=== PATIENT | male | born 1960 | race Two or more races ===

== ENCOUNTER 2024-05-06 18:21 | Inpatient (IN) | payer MEDICAID, SELFPAY ==
[2024-05-06] VITALS (8 sets, daily range): BP systolic 117–161; BP diastolic 68–92; PULSE 70–92; RESP 13–18; TEMP 35.6–36.6; O2SAT 96–99; BMI 28.3
--- NOTE | 2024-05-06 18:26 | XR_ITS ---
Examination: CT brain head without contrast. 2-D sagittal coronal reconstructions Date and time of exam:May 06, 2024 2105 hrs. Indications: Onset headache dizziness today CTDI: vol (mGy):52.4 DLP: (mGycm):1 Technique: Multiple CT axial sections of the brain have been obtained, 5 mm slice thickness. Contrast has not been administered. 2-D sagittal, coronal reconstructions have been obtained Low dose protocols were performed. One or more of the following dose reduction techniques were used; automated exposure control, adjustment of the mA and/or KV according to patient size, use of iterative reconstruction technique. Findings: No significant ventricular enlargement. Subtle low densities in the right frontal parietal lobe, axial image 21 Intra-axial or extra-axial hemorrhage density is not seen. No mass effect or midline shift Basal cisterns are not remarkable. Fourth ventricle is midline. Cranial vault intact. Impression: Negative for acute hemorrhage, mass effect or midline shift Age indeterminate infarcts in the right frontal parietal lobe, clinical correlation advised, consider brain MRI follow-up, stroke protocol
--- NOTE | 2024-05-06 18:27 | EKG_ITS ---
[facility] Test Date: 2024-05-06 Pat Name: MISHA RODRIGUEZ Department: Room: - Gender: Male Employee Placement Specialist: : 1960 Requested By: Danny Sanabria Order Number: [id number] Reading MD: Danny Sanabria Measurements Intervals [place] Rate: 77 P: 39 MD: 152 QRS: 46 QRSD: 116 T: 46 QT: 403 QTc: 457 Interpretive Statements SINUS RHYTHM MODERATE INTRAVENTRICULAR CONDUCTION DELAY [110+ ms QRS DURATION] No previous ECG available for comparison /store/S0/[id number].pdf
--- NOTE | 2024-05-06 18:27 | EDNOTE_ITS ---
ED General RME/HPI General Chief complaint: Nausea/Vomiting/Diarrhea Stated complaint: N/V Time Seen by Provider: 05/06/24 18:26 Arrival date/time: 05/06/24 18:21 CC: Headache and dizziness with abrupt onset of nausea vomiting HPI onset this afternoon approximately 3 hours ago. The patient denies any light sensitive but is squinting his eyes. No active retching at this time. No prior history of similar events he is not a diabetic has no history of hypertension or hyperlipidemia. Also complaining of neck pain for the past hour. Related Data Previous Rx's ?Medication ?Instructions ?Recorded cetirizine 10 mg tablet 10 mg PO QDAY #14 tabs 10/18/22 Allergies Allergy/AdvReac Type Severity Reaction Status Date / Time No Known Allergies Allergy Verified 10/18/22 19:32 Review of Systems Review of Systems Narrative Review of Systems: GEN: No fever, no chills, no weight loss EYES: No discharge, no visual changes, no pain HEENT: No ear pain, no congestion, no sore throat PULM: No shortness of breath, no cough, no congestion CV: No chest pain, no dyspnea on exertion, no palpitations GI: + nausea, + vomiting, no diarrhea, no pain, no constipation : No frequency, no urgency, no dysuria MUSC/SKEL: No joint pain, no back pain SKIN: No rash PSYCH: No hallucinations, no depression HEME/LYMPH: No easy bleeding or bruising tendencies NEURO: No weakness, + headache Past Medical History Past Medical History CARDIAC: Negative Congestive Heart Failure RESPIRATORY: Negative Chronic Obstructive Pulmonary Disease (COPD) GENITOURINARY: Negative Renal Disease ENDOCRINE: Negative Diabetes Mellitus Type 1 or Diabetes Mellitus Type 2 Social History SMOKING STATUS: Current some day smoker ED Exam Narrative Physical exam: [General: In moderate discomfort, not in any acute distress Head normocephalic HEENT: Eyes pupils are PERRLA EOMs intact. Patient had to make an extra effort not to squint secondary to the light. Mouth pink dry membranes uvula is midline. Nose no rhinorrhea or otorrhea. All other subsystems of HEENT are within acceptable limits Neck is supple nontender no JVD no edema no tenderness with palpation to the cervical paraspinal region, no cervical spinal tenderness with palpation Chest equal chest rise nontender to palpation Respiratory: Clear to auscultation no wheezes crackles or rubs CV: Rate rhythm is regular no murmurs rubs or clicks Abdomen is soft nontender no masses positive bowel sounds all 4 quadrants Back: No CVA tenderness no spinous process tenderness from cervical spine thoracic and lumbar spine Skin: Intact no petechiae rash induration ulceration or crepitus Extremities: Moving all extremity against resistance cap refill less than 2 seconds neurosensory intact Neuro: Awake alert oriented x3 Glascow coma 15 no focal deficits] Course Quality Measures none Orders Category Date Time Status Bedside COVID-19 Antigen Test NOW Care 05/07/24 00:10 Active COVID-19 Screening Questionnaire NOW Care 05/06/24 23:57 Active COVID-19 Screening Questionnaire NOW Care 05/07/24 00:09 Active Decision to Admit X1 Care 05/06/24 23:57 Completed Decision to Admit X1 Care 05/07/24 00:09 Completed EKG (ED ONLY) *Do not use* NOW Care 05/06/24 18:27 Completed Saline [Insert IV] NOW Care 05/06/24 18:[address] angio stroke protocol Stat Exams 05/06/24 22:[address] head/brain wo con Stat Exams 05/06/24 18:26 Completed EKG (ED Only) Stat Exams 05/06/24 18:27 Draft B-Type Natriuretic Peptide Stat Lab 05/06/24 19:32 Completed CBC Stat Lab 05/06/24 19:32 Completed Comprehensive Metabolic Panel Stat Lab 05/06/24 19:32 Completed Drug Screen,Urine Stat Lab 05/06/24 20:59 Completed LDH (Lactate Dehydrogenase) Stat Lab 05/06/24 19:32 Completed Magnesium Stat Lab 05/06/24 19:32 Completed Partial Thromboplastin Time Stat Lab 05/06/24 19:32 Completed Prothrombin Time with INR Stat Lab 05/06/24 19:32 Completed Troponin I Stat Lab 05/06/24 19:32 Completed Urinalysis Stat Lab 05/06/24 20:59 Completed Aspirin Med 05/06/24 22:34 Discontinued 325 mg PO X1 ONE Metoclopramide Inj [Reglan Inj] Med 05/06/24 21:35 Discontinued 10 mg IVP X1 ONE Ondansetron Inj [Zofran Inj] Med 05/06/24 18:30 Discontinued 4 mg IV X1 ONE Sodium Chloride 0.9% 1000 ml [Ns] 1,000 ml Med 05/06/24 18:30 Discontinued IV 999 mls/hr Vital Signs Vital signs: Vital Signs Temperature 96.0 F L 05/06/24 18:59 Pulse Rate 78 05/06/24 18:59 Respiratory Rate 17 05/06/24 18:59 Blood Pressure 158/92 H 05/06/24 18:59 Pulse Oximetry (%) 99 05/06/24 18:59 Oxygen Delivery Method Room Air 05/06/24 18:59 [facility] Patient data External records reviewed:: [facility] previous records Clinical information provided by:: patient Social determinants that could affect healthcare access:: none Patient has the following chronic illnesses:: None How is presenting disease/condition affected by chronic disease/condition?: u neffected by Evaluation data The following diagnostics were reviewed and interpreted by me:: lab results, radiology exam(s) and EKG tracing(s) Lab and/or radiology exams considered but not ordered:: CBC shows a mild leukocytosis of 13 with a mild anemia no thrombocytopenia Coags within acceptable limits CMP shows no acute electrolyte imbalances other than mildly elevated glucose, renal impairment transaminitis no T. bili elevation Urine is negative UDS is negative Interpretation Summary: Patient's case referred to telemetry neurology because of the age-indeterminate infarct in the right parietal lobe. Patient is out of the window for tPA. CTA of head and neck advised followed by admission if there is no LVO for further stroke workup. Patient is in agreement with this plan Medications Medications considered but not ordered:: None Medication administrations:: Medication Administration History Acetaminophen (Acetaminophen 325 Mg Tablet) 650 mg PO Q6H PRN PRN Reason: Fever >101.5 or pain 1-3 Stop: 06/06/24 00:55 Last Admin: 05/08/24 00:20 Dose: 650 mg Documented By: Aspirin (Aspirin Ec 81 Mg Tabec) 81 mg PO QDAY MELODY Stop: 06/06/24 08:59 Last Admin: 05/08/24 08:03 Dose: 81 mg Documented By: Admin: 05/07/24 08:23 Dose: 81 mg Documented By: ED Atorvastatin Calcium (Atorvastatin Calcium 20 Mg Tablet) 40 mg PO HS MELODY Stop: 06/06/24 20:59 Last Admin: 05/07/24 20:04 Dose: 40 mg Documented By: Enoxaparin Sodium (Enoxaparin Sod Inj 40 Mg/0.4 Ml Syringe) 40 mg SC QDAY [facility] Stop: 05/21/24 08:59 Last Admin: 05/08/24 08:04 Dose: 40 mg Documented By: Admin: 05/07/24 08:23 Dose: 40 mg Documented By: ED Nicotine (Nicotine Patch 14 Mg/24 Hr Patch.Td24) 14 mg TOP QDAY MELODY Stop: 06/07/24 09:44 Last Admin: 05/08/24 09:49 Dose: 14 mg Documented By: ESTEVAN Ondansetron HCl (Ondansetron Inj 2 Mg/Ml Inj 2 Ml) 4 mg IV Q6H PRN; Protocol PRN Reason: NAUSEA OR VOMITING Stop: 06/06/24 00:55 Tramadol HCl (Tramadol Hcl 50 Mg Tablet) 50 mg PO Q6HR PRN PRN Reason: PAIN SCALE 4-6 (Moderate Stop: 05/12/24 00:55 Last Admin: 05/08/24 02:57 Dose: 50 mg Documented By: Admin: 05/07/24 20:03 Dose: 50 mg Documented By: Admin: 05/07/24 14:26 Dose: 50 mg Documented By: ED Discontinued Medications Alprazolam (Alprazolam 0.25 Mg Tablet) 0.5 mg PO X1 ONE Stop: 05/07/24 12:45 Last Admin: 05/07/24 12:52 Dose: 0.5 mg Documented By: ED Aspirin (Aspirin 325 Mg Tablet) 325 mg PO X1 ONE Stop: 05/06/24 22:35 Last Admin: 05/06/24 23:23 Dose: 325 mg Documented By: TC Clonazepam (Clonazepam 0.5 Mg Tablet) 0.25 mg PO X1 ONE Stop: 05/07/24 08:14 Last Admin: 05/07/24 08:22 Dose: 0.25 mg Documented By: ED Sodium Chloride (Ns) 1,000 mls @ 999 mls/hr IV .Q1H1M ONE Stop: 05/06/24 19:30 Last Infusion: 05/06/24 20:56 Dose: Infused Documented By: Admin: 05/06/24 19:36 Dose: 999 mls/hr Documented By: TC Sodium Chloride (Ns) 1,000 mls @ 100 mls/hr IV .Q10H MELODY Stop: 05/07/24 10:59 Last Infusion: 05/07/24 14:26 Dose: Infused Documented By: Admin: 05/07/24 03:17 Dose: 100 mls/hr Documented By: LISHA Melatonin (Melatonin 3 Mg Tablet) 3 mg PO X1 ONE Stop: 05/08/24 00:10 Last Admin: 05/08/24 00:20 Dose: 3 mg Documented By: Metoclopramide HCl (Metoclopramide Inj 5 Mg/Ml Vial 2 Ml) 10 mg IVP X1 ONE; Protocol Stop: 05/06/24 21:36 Last Admin: 05/06/24 21:46 Dose: 10 mg Documented By: TC Ondansetron HCl (Ondansetron Inj 2 Mg/Ml Inj 2 Ml) 4 mg IV X1 ONE; Protocol Stop: 05/06/24 18:31 Last Admin: 05/06/24 19:37 Dose: 4 mg Documented By: TC Potassium Chloride (Potassium Chloride 20 Meq Tabcr) 20 meq PO X1 ONE Stop: 05/08/24 07:34 Last Admin: 05/08/24 08:03 Dose: 20 meq Documented By: ESTEVAN Quetiapine Fumarate (Quetiapine Fumarate 25 Mg Tablet) 25 mg PO X1 ONE Stop: 05/08/24 07:52 Last Admin: 05/08/24 08:03 Dose: 25 mg Documented By: ESTEVAN None Consultations Consultation(s) initiated? (list below): Yes Consultation #1 (Physician, Specialty, Details): Teleneurologist Time: 22:33 Diagnosis Differential Diagnosis ED Complaint MDM: CVA TIA intercranial hemorrhage Most likely diagnosis given after review of the tests above:: CVA nausea vomiting Admission Indicated Admission indicated?: indicated Explain why admission is indicated or not indicated:: Requires further medical management Admission Request Was there a request for admission?: No Disposition Plan Disposition Plan: Admit Medical Decision Making Differential Diagnosis Differential Diagnosis: CVA TIA intercranial hemorrhage Lab Data 05/08/24 04:38 05/08/24 04:38 Labs: Lab Results 05/06/24 05/06/24 Range/Units 19:32 20:59 WBC 14.3 H (3.8-10.6) Thou/mm3 RBC 4.44 L (4.50-5.90) Miln/mm3 Hgb 13.1 L (13.5-16.0) g/dL Hct 38.0 L (41.0-53.0) % MCV 86 (80-100) fL MCH 29.5 (25.0-35.0) pg MCHC 34.5 (31.0-37.0) g/dl RDW Std Deviation 38.8 (35.1-43.9) fL Plt Count 192 (140-440) Thou/mm3 Neut % (Auto) 82 H (37-80) % Lymph % (Auto) 10 (10-50) % [place] % (Auto) 6 (0-12) % Eos % (Auto) 1 (0-10) % Baso % (Auto) 0 (0-2.5) % Neut # (Auto) 11.8 H (1.8-7.7) Thou/mm3 Lymph # (Auto) 1.4 (1.0-4.8) Thou/mm3 [place] # (Auto) 0.9 H (0.0-0.8) Thou/mm3 Eos # (Auto) 0.1 (0.0-0.5) Thou/mm3 Baso # (Auto) 0.1 (0.0-0.2) Thou/mm3 Immature Gran # (Auto) 0.12 H (0.00-0.00) Thou/mm3 Absolute Nucleated RBC 0.00 (0.00-0.00) Thou/mm3 Immature Gran % 1 H (0-0) % Nucleated RBC % 0 (0) /100 WBC PT 10.9 (9.0-12.2) Seconds INR 1.0 (0.9-1.3) APTT 20.0 L (22.0-36.0) Seconds Sodium 139 (136-145) mMol/L Potassium 3.8 (3.4-5.1) mMol/L Chloride 104 (98-107) mMol/L Carbon Dioxide 26.9 (20.0-31.0) mMol/L Anion Gap 8 (7-16) BUN 13 (9-23) mg/dL Creatinine 1.0 (0.6-1.3) mg/dL Estim Creat Clear Calc 66.8 (>60) mL/min eGFR > 60 (60 - ) See Note BUN/Creatinine Ratio 13 (12-20) Ratio Glucose 128 H (74-106) mg/dL Calculated Osmolality 279 (275-295) Calcium 8.9 (8.3-10.6) mg/dL Corrected Calcium 8.9 (8.5-10.1) mg/dL Magnesium 1.9 (1.6-2.6) mg/dL Total Bilirubin 0.2 L (0.3-1.2) mg/dL AST 19 (0-34) U/L ALT 24 (10-49) U/L Alkaline Phosphatase 61 (46-116) U/L Lactate Dehydrogenase 209 (120-246) U/L Troponin I < 0.002 (0.0-0.045) ng/mL B-Natriuretic Peptide < 20 (0-100) pg/mL Total Protein 6.6 (5.7-8.2) gm/dL Albumin 4.4 (3.4-4.8) gm/dL Globulin 2.2 L (2.3-3.5) gm/dL Albumin/Globulin Ratio 2.0 (1.2-2.2) Ur Collection Type Clean Catch Urine Color Lt-Yellow (Lt Yel-Yel) Urine Clarity Clear (Clear/Hazy) Urine pH 7.5 H (5.0-7.0) Ur Specific [place] 1.015 (1.001-1.035) Urine Protein Trace (Neg - Trace) Urine Glucose (UA) Negative (Negative) Urine Ketones Trace (Negative) Urine Blood Negative (Negative) Urine Nitrite Negative (Negative) Urine Bilirubin Negative (Negative) Urine Urobilinogen (Auto) Negative (0.0-1.0) mg/dL Ur Leukocyte Esterase Negative (Negative) Urine RBC 0 (0-3) /hpf Urine WBC 0 (0-5) /hpf Ur Squamous Epith Cells 0 (0-5) /hpf Urine Bacteria None (None) Urine Opiates Screen Negative (Negative) Urine Fentanyl Screen Negative (Negative) Ur Barbiturates Screen Negative (Negative) U Amphetamin/Meth Scrn Negative (Negative) U Benzodiazepines Scrn Negative (Negative) U Cocaine Metab Screen Negative (Negative) U Marijuana (THC) Screen Negative (Negative) Discharge Plan Plan Patient Disposition: Admit Acute Care w/in Hospital Problem List Clinical Impression: CVA (cerebral vascular accident) PA/SHOPPER Supervising Physician PA/SHOPPER Supervising Physician: Danny Suárez ENP
[2024-05-06] MEDS: SODIUM CHLORIDE 0.9% 1000 ML 1,000 ML 999 ML IV (19:36)
[2024-05-06] MEDS: ONDANSETRON INJ 2 MG/ML INJ 2 ML 4 MG IV (19:37)
[2024-05-06 19:52] LABS: Basophils # (Auto) 0.1 Thou/mm3 (0.0-0.2); Basophils % (Auto) 0 % (0-2.5); Eosinophils # (Auto) 0.1 Thou/mm3 (0.0-0.5); Eosinophils % (Auto) 1 % (0-10); Hemoglobin 13.1 g/dL (13.5-16.0); Immature Granulocytes % (Auto) 1 % (0-0); Immature Granulocytes Auto 0.12 Thou/mm3 (0.00-0.00); Lymphocytes # (Auto) 1.4 Thou/mm3 (1.0-4.8); Lymphocytes % (Auto) 10 % (10-50); Mean Corpuscular HGB Conc 34.5 g/dl (31.0-37.0); Mean Corpuscular Hemoglobin 29.5 pg (25.0-35.0); Mean Corpuscular Volume 86 fL (80-100); Monocytes # (Auto) 0.9 Thou/mm3 (0.0-0.8); Monocytes % (Auto) 6 % (0-12); Neutrophils # (Auto) 11.8 Thou/mm3 (1.8-7.7); Neutrophils % (Auto) 82 % (37-80); Nucleated Red Blood Cell % 0 /100 WBC (0); Platelet Count 192 Thou/mm3 (140-440); RDW Standard Deviation 38.8 fL (35.1-43.9); Red Blood Count 4.44 Miln/mm3 (4.50-5.90); White Blood Count 14.3 Thou/mm3 (3.8-10.6)
[2024-05-06 20:11] LABS: Alanine Aminotransferase 24 U/L (10-49); Albumin, Serum 4.4 gm/dL (3.4-4.8); Alkaline Phosphatase 61 U/L (46-116); Anion Gap 8 (7-16); Aspartate Amino Transferase 19 U/L (0-34); BUN/Creatinine Ratio 13 Ratio (12-20); Bilirubin,Total 0.2 mg/dL (0.3-1.2); Blood Urea Nitrogen 13 mg/dL (9-23); Calcium 8.9 mg/dL (8.3-10.6); Calcium (Corrected) 8.9 mg/dL (8.5-10.1); Carbon Dioxide 26.9 mMol/L (20.0-31.0); Chloride 104 mMol/L (98-107); Estimated Creatinine Clearance 66.8 mL/min (>60); Globulin 2.2 gm/dL (2.3-3.5); Glucose 128 mg/dL (74-106); LDH (Lactate Dehydrogenase) 209 U/L (120-246); Magnesium 1.9 mg/dL (1.6-2.6); Osmolality,Calculated 279 (275-295); Potassium 3.8 mMol/L (3.4-5.1); Sodium 139 mMol/L (136-145); Total Protein 6.6 gm/dL (5.7-8.2); Troponin I < 0.002 ng/mL (0.0-0.045); eGFR > 60 See Note
[2024-05-06 20:16] LABS: Prothrombin Time 10.9 Seconds (9.0-12.2)
[2024-05-06 20:23] LABS: B-Type Natriuretic Peptide < 20 pg/mL (0-100)
[2024-05-06 21:25] LABS: Collection Type, Urine Clean Catch; RBC,Urine 0 /hpf (0-3); Squamous Epithelial Cell,Urine 0 /hpf (0-5); WBC,Urine 0 /hpf (0-5)
[2024-05-06] MEDS: METOCLOPRAMIDE INJ 5 MG/ML VIAL 2 ML 10 MG IVP (21:46)
--- NOTE | 2024-05-06 21:47 | PC.NURSE ---
stroke consult Case # [id number]
[2024-05-06 21:50] LABS: Bilirubin,Urine Negative (Negative); Blood,Urine Negative (Negative); Clarity,Urine Clear (Clear/Hazy); Color,Urine Lt-Yellow (Lt Yel-Yel); Glucose, Urine Negative (Negative); Ketones,Urine Trace (Negative); Leukocyte Esterase,Urine Negative (Negative); Nitrite,Urine Negative (Negative); PH,Urine 7.5 (5.0-7.0); Protein,Urine Trace (Neg - Trace); Specific Gravity,Urine 1.015 (1.001-1.035); Urobilinogen,Urine Negative mg/dL (0.0-1.0)
[2024-05-06 21:57] LABS: Amphetamine/Methamp Scrn,U Negative (Negative); Barbiturate Screen,Urine Negative (Negative); Benzodiazepines Screen,Urine Negative (Negative); Benzoylecgonine Screen, Ur Negative (Negative); Fentanyl Screen,Urine Negative (Negative); Opiate Screen,Urine Negative (Negative); THC Screen,Urine Negative (Negative)
--- NOTE | 2024-05-06 22:28 | XR_ITS ---
Examination: CTA carotids with intravenous contrast CTA brain, head with intravenous contrast. 2-D sagittal, coronal reconstructions. 3-D reconstructions. Exam date and time: May 06, 2024 at 1111 hrs. Indications: Stroke alert today, onset focal neurologic deficit CTDI: vol (mGy) 11 DLP: (mGycm) 444 Technique: Multiple CTA axial brain, head carotid images post intravenous contrast injection 75 cc, Isovue-370. 2-D sagittal, coronal reconstructions. 3-D reconstructions, 3-D post processing including vascular maximum intensity projection images. Low dose protocols were performed. One or more of the following dose reduction techniques were used; automated exposure control, adjustment of the mA and/or KV according to patient size, use of iterative reconstruction technique. Findings: No significant neck common carotid carotid bifurcation or internal carotid artery stenoses Dominant left vertebral artery with no critical stenoses No cerebral large vessel arterial occlusions, thrombus, dissection or cerebral aneurysm Impression: No significant neck arterial stenoses No cerebral large vessel arterial occlusions, thrombus, dissection or cerebral aneurysm
--- NOTE | 2024-05-06 22:32 | ESCONSULT_ITS ---
Tele Neuro Consultation Consultation Date 05/06/24 Most Recent Vital Signs Last Vital Signs Temp 96.0 F L 05/06/24 18:59 Pulse 82 05/06/24 20:06 Resp 17 05/06/24 20:06 BP 161/89 H 05/06/24 20:06 Pulse Ox 99 05/06/24 20:06 O2 Del Method Room Air 05/06/24 20:06 Laboratory-Coagulation Panel PT 10.9 Seconds (9.0-12.2) 05/06/24 19:32 INR 1.0 (0.9-1.3) 05/06/24 19:32 APTT 20.0 Seconds (22.0-36.0) L 05/06/24 19:32 Consultation Narrative [facility] TeleNeurology Consult Services Stat Consult Patient Name:???flavia diego Date of :???1960 Identification Number:??? Date of Service:???05/06/2024 21:46:34 Diagnosis:?I63.30 - Cerebrovascular accident (CVA) due to thrombosis of cerebral artery ([facility]) Impression 63M with PMHx tobacco dependence, Yakut speaking, presents with vertigo, nausea/vomiting starting earlier today, CT head with hypodensities R middle parietal lobe. Son is at bedside, tells me his brother found him throwing up on the floor, very weak, with severe headache. When asked why he is here, patient says he does not know. Asked if he had trouble walking, states he does not remember. States he has abdominal pain and the room was spinning and was throwing up. He feels weak on the left side. 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 Denies hx of stroke, cancer, seizure. Denies feeling dizzy before today. Nausea/vertigo started about 2pm. Headache started 3 days ago. On exam patient has decreased sensation left face, Right arm and leg, otherwise no deficits except for very ataxic gait/unable to stand. Presentation concerning for acute ischemic stroke(s) vs other intracranial pathology (mass etc). ? Recommendations: Our recommendations are outlined below. Diagnostic Studies :MRI head with and without contrast TTE Laboratory Studies :Lipid panelI orderedHemoglobin A1c TSH Antithrombotic Medication :Aspirin 81 mg PO daily Nursing Recommendations :IV Fluids, avoid dextrose containing fluids, Maintain euglycemia Head of bed 30 degrees Continue with Telemetry Neuro checks Q4 hours Consultations :Recommend Speech therapy if failed dysphagia screen Physical therapy/Occupational therapy DVT Prophylaxis :Lovenox or LMW Heparin Disposition :Neurology will follow Advanced Imaging:Advanced imaging has been ordered. Results pending. Metrics: Dispatch Time: 05/06/2024 21:46:34 Callback Response Time: 05/06/2024 21:48:29 Primary Provider Notified of Diagnostic Impression and Management Plan on: 05/06/2024 22:27:57 Chief Complaint: Dizziness & h/a x1 week, w/ N/V 3 hours ago. Mildly light sensitive; no focal deficits, abnormal CT head History of Present Illness:Patient is a 63 year old Male. 63M with PMHx tobacco dependence, Yakut speaking, presents with vertigo, nausea/vomiting starting earlier today, CT head with hypodensities R middle parietal lobe. Son is at bedside, tells me his brother found him throwing up on the floor, very weak, with severe headache. When asked why he is here, patient says he does not know. Asked if he had trouble walking, states he does not remember. States he has abdominal pain and the room was spinning and was throwing up. He feels weak on the left side. 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 Denies hx of stroke, cancer, seizure. Denies feeling dizzy before today. Nausea/vertigo started about 2pm. Headache started 3 days ago. ? Past Medical History: ?There is no history of Stroke ?There is no history of Seizures Medications: No Anticoagulant use? No Antiplatelet use Reviewed EMR for current medications Allergies:? Reviewed Social History: Smoking: Yes Family History: There is no family history of premature cerebrovascular disease pertinent to this consultation ROS : 14 Points Review of Systems was performed and was negative except mentioned in HPI. Past Surgical History: There Is No Surgical History Contributory To Today?s Visit ? Examination: BP(161/89),?Pulse(82),?Blood Glucose(132) 1A: Level of Consciousness - Alert; keenly responsive?+ 0 1B: Ask Month and Age - Both Questions Right?+ 0 1C: Blink Eyes & Squeeze Hands - Performs Both Tasks?+ 0 2: Test Horizontal Extraocular Movements - Normal?+ 0 3: Test Visual Gayle - No Visual Loss?+ 0 4: Test Facial Palsy (Use Grimace if Obtunded) - Normal symmetry?+ 0 5A: Test Left Arm Motor Drift - No Drift for 10 Seconds?+ 0 5B: Test Right Arm Motor Drift - No Drift for 10 Seconds?+ 0 6A: Test Left Leg Motor Drift - No Drift for 5 Seconds?+ 0 6B: Test Right Leg Motor Drift - No Drift for 5 Seconds?+ 0 7: Test Limb Ataxia (FNF/Heel-Conteh) - No Ataxia?+ 0 8: Test Sensation - Mild-Moderate Loss: Can Sense Being Touched?+ 1 9: Test Language/Aphasia - Normal; No aphasia?+ 0 10: Test Dysarthria - Normal?+ 0 11: Test Extinction/Inattention - No abnormality?+ 0 NIHSS Score:?1 NIHSS Free Text :?said he is 73, decreased sensation LEFT face, RIGHT arm, RIGHT leg ; unable to walk independently Spoke with :?ED physician This consult was conducted in real time using interactive audio and video technology. Patient was informed of the technology being used for this visit and agreed to proceed. Patient located in hospital and provider located at home/office setting. Patient is being evaluated for possible acute neurologic impairment and high probability of imminent or life - threatening deterioration.I spent total of 35 minutes providing care to this patient, including time for face to face visit via telemedicine, review of medical records, imaging studies and discussion of findings with providers, the patient and / or family. Dr Maribel Abdullahi [facility] For Inpatient follow-up with [facility] physician please call [facility] at . As we are not an outpatient service for any post hospital discharge needs please contact the hospital for assistance. If you have any questions for the [facility] physicians or need to reconsult for clinical or diagnostic changes please contact us via [facility] at .
--- NOTE | 2024-05-06 23:03 | EDNOTE_ITS ---
Emergency Room Addendum Addendum Narrative: 2300: Care assumed from Danny Suárez NP. Past medical, surgical, social and family history reviewed. Vitals and home medications reviewed. Results and treatment plan discussed. I will assume the care of the patient at this time and will follow the patient, pending CTA of the head and neck. If positive, the patient will need to be transferred. If negative, the patient can be admitted here. Please refer to the emergency department record for history and examination from initial visit. CTA is negative as below. Will consult an admission to the hospitalist. 0007: Discussed case with [the resident physician, attending Dr. Wynne] from Hospitalist service regarding admission. Discussed patients ED course, exam findings, labs, and radiology results. The Hospitalist [agrees] to accept the patient for admission. RADIOLOGY RESULTS: [facility] Report Signed Patient: MISHA RODRIGUEZ Record#: [id number] Birthdate: 1960 Age/Sex: 63 / M Location: [facility] Attending Dr: Ordering Physician: Maribel Abdullahi MD Date of Service: 05/06/24 Procedure(s): CT angio stroke protocol Accession Number(s): [id number] cc: Maribel Abdullahi MD; Alfa Dalton MD; Hermelindo Paul MD~ Examination: CTA carotids with intravenous contrast CTA brain, head with intravenous contrast. 2-D sagittal, coronal reconstructions. 3-D reconstructions. Exam date and time: May 06, 2024 at 1111 hrs. Indications: Stroke alert today, onset focal neurologic deficit CTDI: vol (mGy) 11 DLP: (mGycm) 444 Technique: Multiple CTA axial brain, head carotid images post intravenous contrast injection 75 cc, Isovue-370. 2-D sagittal, coronal reconstructions. 3-D reconstructions, 3-D post processing including vascular maximum intensity projection images. Low dose protocols were performed. One or more of the following dose reduction techniques were used; automated exposure control, adjustment of the mA and/or KV according to patient size, use of iterative reconstruction technique. Findings: No significant neck common carotid carotid bifurcation or internal carotid artery stenoses Dominant left vertebral artery with no critical stenoses No cerebral large vessel arterial occlusions, thrombus, dissection or cerebral aneurysm Impression: No significant neck arterial stenoses No cerebral large vessel arterial occlusions, thrombus, dissection or cerebral aneurysm Dictated By: Alfa Dalton MD Signed By: <Electronically signed by Alfa Dalton MD in [place]> 05/06/24 [id number]
[2024-05-06] MEDS: Aspirin 325 MG TABLET PO (23:23)
[2024-05-07] VITALS (20 sets, daily range): BP systolic 117–162; BP diastolic 71–104; PULSE 67–101; RESP 12–20; TEMP 36.4–37.1; O2SAT 94–99
--- NOTE | 2024-05-07 | XR_ITS ---
Examinations: MRI Brain without intravenous contrast. MRA brain without intravenous contrast. MRA carotids without intravenous contrast 3-D vascular reconstructions Date and time of exam: May 07, 2024 0653 hrs. Indications: Dizziness vomiting ataxia severe headache beginning last night Technique: Multiple axial and sagittal images of the brain have been obtained MRA brain carotid images without contrast obtained, including 3-D postprocessing, vascular maximum intensity projection images Findings: [place] is not enlarged. The optic chiasm and infundibular stalk are not remarkable. Prepontine and interpeduncular cisterns are not enlarged. No localized enlargement of the medulla or elvie. Fourth ventricle and cerebellar tonsils normal in position. Subacute hemorrhage is not seen. Fourth ventricle is midline. Mass in the cerebellopontine angle region is not evident. 7th and 8th nerve complexes exhibits symmetry. Globes are symmetrical with no retro-orbital mass. Increased white matter signal quite prominent, multiple punctate foci increased signal in the white matter Diffusion-weighted images demonstrate no focus restricted diffusion Mass-effect upon the ventricular system is not identified. MRA carotid images degraded by patient motion. MRA brain images no large vessel occlusions Impression: Negative for acute hemorrhage mass effect or midline shift No acute infarct Multiple punctate foci increased signal in the white matter, differential would include accelerated microvascular white matter change, demyelinating disease, clinical correlation advised
--- NOTE | 2024-05-07 01:04 | PD.RESHP ---
Documentation for date of: 05/07/24 [facility] History of Present Illness History of present illness: Roberto is a 63 y/o male with PMHx of tobacco use and gout who comes to [facility] on 05/06/2024 for an evaluation of nausea and vomiting with associated generalized weakness, dizziness, photophobia, headache and trouble with gait, onset earlier prior to arrival. Patient reports that he was in bed, was about to get up, but could not get out of bed and felt too nauseous and ended up throwing up in bed. He said that after he threw up he felt a little better, however he also went to the bathroom later and ended up feeling nauseous and threw up again. He says that he has been feeling progressively more weak and dizzy, but did not pass out even though he felt like he was going to. He also rates his headache a 8 out of 10 out of pain that is described in location and the back right of his head, but has been alleviated with some pain medicine. He denies having any of the symptoms before. He says that his last gout attack was about 3 years ago and just takes tramadol for it. He says that the light does bother him, and feels like he has been having some blurry vision as well. He does not remember what the color of his vomit was. He denies having any upper extremity weakness however trouble with some walking. Denies any trouble with speech. Denies chest pain, shortness of breath, numbness, tingling. No other complaints at this time ED course: Patient came to the ED with unremarkable vitals. Came to the ED and was worked up and was found to have sodium of 139, hemoglobin of 13.1, white count of 14.3, BUN/creatinine of 13 and 1.0 respectively, urine drug screen was negative, urine was negative, head CT was done which showed age indeterminate infarcts in the right frontoparietal lobe, head neck CTA was unremarkable for stenosis or occlusions. Teleneuro was consulted who gave patient a NIHSS score of 0, and recommended for patient to be admitted for further workup. Patient was given aspirin 325 x 1. Medicine was consulted and patient was admitted to floors. Past medical history: As above Surgeries: Left knee surgery Allergies: No known allergies Meds: Tramadol as needed for gout pain Family history: Brother had heart transplant Social history: Smokes and drinks, has not been drinking a lot lately, smokes about a pack a week. No drug use. Lives with and kids Review of Systems Review of Systems Narrative Review of Systems: Constitutional: +fatigue, no fever, chills, weight loss HEENT: + Photophobia, blurry vision, ear pain, hearing loss, dysphagia, Cardiovascular: No chest pain, palpitations, edema, pain with walking Respiratory: No cough, shortness of breath, wheezing GI: No NVD, abdominal pain, constipation, blood in stool, loss of appetite, heartburn Extremities: No presence of pitting edema MSK: No back pain, joint pain, joint swelling Neuro: +dizziness, weakness, headache, no numbness, seizures, tremors Psych: No anxiety, depression Exam Vital Signs Temp Pulse Resp BP Pulse Ox O2 Del Method 97.8 F 92 18 117/68 97 Room Air 05/06/24 22:36 05/06/24 22:36 05/06/24 22:36 05/06/24 22:36 05/06/24 22:36 05/06/24 22:36 Narrative Exam General: AAOx3, NAD, setswana speaking male, pleasant HEENT: Moist mucous membranes, conjunctiva clear, EOMI, PERRLA, Cardiovascular: S1, S2, radial pulses +2 bilat, RRR Pulmonary: CTAB bilat no cough, no wheezing GI: No tenderness to light or deep palpitation, no guarding, rigidity, rebound tenderness or distension Extremities: No presence of trace or pitting edema in lower extremities bilaterally, dorsalis pedis pulses +2 bilaterally Neuro: AAOx3, no focal motor or sensory deficits in the UE or LE bilat, no nystagmus, gait was not evaluated, negative heel to sagastume Psych: Good judgement, thought and behavior. Cooperative Results: Labs 05/07/24 04:20 05/07/24 04:20 Labs: Short CBC 05/06/24 Range/Units 19:32 WBC 14.3 H (3.8-10.6) Thou/mm3 Hgb 13.1 L (13.5-16.0) g/dL Hct 38.0 L (41.0-53.0) % Plt Count 192 (140-440) Thou/mm3 BMP 05/06/24 19:32 Sodium 139 Potassium 3.8 Chloride 104 Carbon Dioxide 26.9 BUN 13 Creatinine 1.0 Glucose 128 H Calcium 8.9 Cardiac Enzymes 05/06/24 Range/Units 19:32 Troponin I < 0.002 (0.0-0.045) ng/mL Liver Function 05/06/24 Range/Units 19:32 Total Bilirubin 0.2 L (0.3-1.2) mg/dL AST 19 (0-34) U/L ALT 24 (10-49) U/L Alkaline Phosphatase 61 (46-116) U/L Albumin 4.4 (3.4-4.8) gm/dL Urine 05/06/24 Range/Units 20:59 Urine Color Lt-Yellow (Lt Yel-Yel) Urine Clarity Clear (Clear/Hazy) Urine pH 7.5 H (5.0-7.0) Ur Specific [place] 1.015 (1.001-1.035) Urine Protein Trace (Neg - Trace) Urine Glucose (UA) Negative (Negative) Quality Measures Quality Measures VTE prophylaxis Medications Home Medications and Allergies Allergies Allergy/AdvReac Type Severity Reaction Status Date / Time No Known Allergies Allergy Verified 10/18/22 19:32 Visit Medications Acetaminophen (Acetaminophen 325 Mg Tablet) 650 mg PO Q6H PRN PRN Reason: Fever >101.5 or pain 1-3 Stop: 06/06/24 00:55 Aspirin (Aspirin Ec 81 Mg Tabec) 81 mg PO QDAY [facility] Stop: 06/06/24 08:59 Enoxaparin Sodium (Enoxaparin Sod Inj 40 Mg/0.4 Ml Syringe) 40 mg SC QDAY [facility] Stop: 05/21/24 08:59 Sodium Chloride (Ns) 1,000 mls @ 100 mls/hr IV .Q10H MELODY Stop: 06/06/24 00:59 Ondansetron HCl (Ondansetron Inj 2 Mg/Ml Inj 2 Ml) 4 mg IV Q6H PRN; Protocol PRN Reason: NAUSEA OR VOMITING Stop: 06/06/24 00:55 Tramadol HCl (Tramadol Hcl 50 Mg Tablet) 50 mg PO Q6HR PRN PRN Reason: PAIN SCALE 4-6 (Moderate Stop: 05/12/24 00:55 Discontinued Medications Aspirin (Aspirin 325 Mg Tablet) 325 mg PO X1 ONE Stop: 05/06/24 22:35 Last Admin: 05/06/24 23:23 Dose: 325 mg Sodium Chloride (Ns) 1,000 mls @ 999 mls/hr IV .Q1H1M ONE Stop: 05/06/24 19:30 Last Infusion: 05/06/24 20:56 Dose: Infused Metoclopramide HCl (Metoclopramide Inj 5 Mg/Ml Vial 2 Ml) 10 mg IVP X1 ONE; Protocol Stop: 05/06/24 21:36 Last Admin: 05/06/24 21:46 Dose: 10 mg Ondansetron HCl (Ondansetron Inj 2 Mg/Ml Inj 2 Ml) 4 mg IV X1 ONE; Protocol Stop: 05/06/24 18:31 Last Admin: 05/06/24 19:37 Dose: 4 mg Assessment & Plan Plan Assessment Roberto is a 63 y/o male with past medical history of tobacco use and gout who is currently admitted for stroke rule out. #Stroke rule out #Intracranial hemorrhage, ruled out #? Age indeterminate infarcts Patient had arrived with symptoms of vomiting, and headache, changes with vision, and generalized weakness and fatigue Age-indeterminate infarcts seen on right parietal frontal lobe, head neck CTA negative Need to further workup for patient if patient experience some TIA, stroke Plan: ? MR stroke protocol ? TTE ? Head of bed elevation 30 degrees ? ASA 81 ? PT ? N.p.o. until nurse swallow eval ? Orthostatic vitals ? A1c, TSH, lipid panel ? Seizure precautions ? Neurochecks every 4 hours #? Vertigo #Nausea #Vomiting Could be related to dizziness and orthostasis Could be positionally related No infectious cause at this point, low suspicion Plan: ? Antiemetics with Zofran ? PT eval ? Bedrest ? As above #Leukocytosis Could be due to dehydration 2/2 GI losses Plan: ? Trend w/ CBC #History of gout Last gout attack was 3 years ago per patient Takes tramadol as needed for pain Plan: ? Resumed home tramadol 50 as needed #Substance abuse, tobacco Plan: ? Consider Nicotine Patch ? Smoking cessation counseling #Health Maintenance Disposition: Telemetry DVT prophylaxis: Lovenox GI prophylaxis: None indicated at this time Diet: NPO until passes bedside swallow CODE STATUS: Full Patient seen and care discussed with my attending physician, Dr. Ricci Meza, PGY-1 Attending Provider Attestation/Addendum I have examined the patient, reviewed labs and imaging findings, discussed the case with the resident(s), and reviewed entered orders. I agree with the plan of care as outlined in this note, with these additional summaries/recommendations: 63-year-old male with past medical history of tobacco use and gout presents to the ED with chief complaint of worsening weakness, headache, dizziness with associated episodes of vomiting. Vital signs stable initially but patient appeared altered so CT head was ordered which showed age-indeterminate infarcts right frontal parietal lobe. Teleneurology was consulted and at the time patient had NIHSS score of 0. Teleneurology recommended admission for further workup of age-indeterminate infarcts. Kenyon Wynne MD
[2024-05-07] MEDS: SODIUM CHLORIDE 0.9% 1000 ML 1,000 ML 100 ML IV (03:17)
[2024-05-07 05:33] LABS: Basophils % (Auto) 0 % (0-2.5); Eosinophils % (Auto) 0 % (0-10); Hematocrit 35.9 % (41.0-53.0); Hemoglobin 12.3 g/dL (13.5-16.0); Immature Granulocytes % (Auto) 0 % (0-0); Immature Granulocytes Auto 0.03 Thou/mm3 (0.00-0.00); Lymphocytes # (Auto) 1.6 Thou/mm3 (1.0-4.8); Lymphocytes % (Auto) 18 % (10-50); Mean Corpuscular HGB Conc 34.3 g/dl (31.0-37.0); Mean Corpuscular Hemoglobin 29.2 pg (25.0-35.0); Mean Corpuscular Volume 85 fL (80-100); Monocytes # (Auto) 0.6 Thou/mm3 (0.0-0.8); Monocytes % (Auto) 6 % (0-12); Neutrophils # (Auto) 6.9 Thou/mm3 (1.8-7.7); Neutrophils % (Auto) 76 % (37-80); Nucleated Red Blood Cell % 0 /100 WBC (0); Platelet Count 206 Thou/mm3 (140-440); RDW Standard Deviation 38.8 fL (35.1-43.9); Red Blood Count 4.21 Miln/mm3 (4.50-5.90); White Blood Count 9.2 Thou/mm3 (3.8-10.6)
[2024-05-07 05:53] LABS: Glucose Estimated Average 114 mg/dL (80-131); Hemoglobin A1C 5.6 % Hgb (4.8-6.0)
[2024-05-07 05:58] LABS: Alanine Aminotransferase 15 U/L (10-49); Alkaline Phosphatase 57 U/L (46-116); Anion Gap 7 (7-16); Aspartate Amino Transferase 14 U/L (0-34); BUN/Creatinine Ratio 13 Ratio (12-20); Bilirubin,Total 0.4 mg/dL (0.3-1.2); Blood Urea Nitrogen 10 mg/dL (9-23); Calcium 8.6 mg/dL (8.3-10.6); Calcium (Corrected) 8.6 mg/dL (8.5-10.1); Carbon Dioxide 25.9 mMol/L (20.0-31.0); Cardiac Risk Estimate 3.1 RATIO (4.0-6.7); Chloride 106 mMol/L (98-107); Cholesterol 157 mg/dL (132-200); Creatinine (Component) 0.8 mg/dL (0.6-1.3); Estimated Creatinine Clearance 83.7 mL/min (>60); Glucose 117 mg/dL (74-106); HDL Cholesterol 50 mg/dL (40-60); LDL Cholesterol,Calculated 97 mg/dL (0-130); Osmolality,Calculated 277 (275-295); Sodium 139 mMol/L (136-145); Thyroid Stimulating Hormone 3.25 uIU/mL (0.55-4.78); Triglycerides 48 mg/dL (30-150); eGFR > 60 See Note
--- NOTE | 2024-05-07 07:24 | PC.NURSE ---
Pt. is not in room 7, pt. is in MRI, pt.'s son is at bedside.
--- NOTE | 2024-05-07 08:00 | PC.NURSE ---
pt. laying in bed in room 7, pt. states he is much better than when he came in, Pt. denies any pain at this time. Pt. states he is getting anxious, pt. son states pt. is a smoker. Pt. son states pt. is way better than when he came in, pt. son states that pt. was slurring his words when he came in. Pt. speaking clear at this time and a GCS 15.
--- NOTE | 2024-05-07 08:12 | PC.NURSE ---
called Dr. Higgins [phone], pt. states he is getting anxious, inform Dr. Higgins that pt. is a smoker, Dr. Higgins states he will review the chart and place orders.
[2024-05-07] MEDS: clonazePAM 0.5 MG TABLET 0.25 MG PO (08:22)
[2024-05-07] MEDS: ASPIRIN EC 81 MG TABEC PO (08:23)
[2024-05-07] MEDS: ENOXAPARIN SOD INJ 40 MG/0.4 ML SYRINGE SC (08:23)
--- NOTE | 2024-05-07 11:25 | PC.NURSE ---
Pt. getting anxious again, daughter at bedside, called [phone] Dr. Moore answered and informed him pt. is getting anxious, he states he will put in new orders.
[2024-05-07] MEDS: ALPRazoLAM 0.25 MG TABLET 0.5 MG PO (12:52)
--- NOTE | 2024-05-07 13:30 | PC.CC ---
Patient is a 63 year-old male who presents to the hospital for for Stroke Rule Out. Annalee CANTOR made [id number] contact with patient. ASW introduced self, role, and reason for visit. Patient appeared alert and oriented to self, location, and situation. Patient was pleasant and engaged in initial assessment. Patient confirmed information on demographics and reports to living with his , Jessica Oliveros . Patient stated his is his medical decision maker should he not be able to make his own medical decisions. At home patient is independent with ADLs and is able to ambulate independently. Patient does not use any DME at home. Patient receives primary care with [facility] and for prescription medication he uses [facility]. Upon discharge patient plans to return home. guest services coordinator to follow up with any discharge needs.
[2024-05-07] MEDS: traMADol HCL 50 MG TABLET PO ×2 (14:26→20:03)
--- NOTE | 2024-05-07 15:14 | ESPR_ITS ---
Documentation for date of: 05/07/24 Subjective Subjective Interval history: Patient was seen at bedside this morning. No overnight events. Patient's MRI came back and showed no acute infarct and only showed white matter changes. Spoke with teleneurology via phone call and stated to continue aspirin for now and to follow-up up with an hospital neurology tomorrow. Patient's symptoms seem to have improved with some mild decrease sensation on the right upper extremity, but strength 5 out of 5 bilateral upper and lower extremities. Patient was also complaining of anxiety given that he does not like being in the hospital therefore ordered Xanax 0.5 x 1. Will follow-up on neurology recommendations. No other complaints this time. Exam Vital Signs Temp Pulse Resp BP Pulse Ox O2 Del Method 98.7 F 92 17 151/103 H 97 Room Air 05/07/24 11:01 05/07/24 14:50 05/07/24 14:50 05/07/24 14:50 05/07/24 14:50 05/07/24 14:50 Narrative Exam General: A/O x3, anxious, no acute distress Eyes: PERRL, EOMI. Anicteric, vision grossly intact. Ears: No ear pain, no ear discharge, Hearing grossly intact. Nose: No nasal discharge. Mouth/Throat: Dry mucous membranes, no redness, no lesions. Neck: Neck supple, non-tender, no cervical lymphadenopathy. Lungs: Clear AMANDO to auscultation and percussion, No accessory muscle use. Cardio: Normal S1/S2, regular rhythm, no murmurs, no JVD Abdomen: Soft, non-tender, no palpable masses, peristalsis present, no guarding or rebound. Extremities: Symmetrical, no significant deformities, no peripheral edema , non-tender, peripheral pulses presents. Skin: No rashes, no lesions, warm to touch. Neuro: Decreased sensation in R UE when compared to L UE, strength 5/5 AMANDO UE and LE. No slurred speech appreciated. Psych: anxious Objective Labs 05/07/24 04:20 05/07/24 04:20 Labs: Laboratory Results - last 24 hr 05/06/24 05/06/24 05/07/24 19:32 20:59 04:20 WBC 14.3 H 9.2 D RBC 4.44 L 4.21 L Hgb 13.1 L 12.3 L Hct 38.0 L 35.9 L MCV 86 85 MCH 29.5 29.2 MCHC 34.5 34.3 RDW Std Deviation 38.8 38.8 Plt Count 192 206 Neut % (Auto) 82 H 76 Lymph % (Auto) 10 18 [place] % (Auto) 6 6 Eos % (Auto) 1 0 Baso % (Auto) 0 0 Neut # (Auto) 11.8 H 6.9 Lymph # (Auto) 1.4 1.6 [place] # (Auto) 0.9 H 0.6 Eos # (Auto) 0.1 0.0 Baso # (Auto) 0.1 0.0 Immature Gran # (Auto) 0.12 H 0.03 H Absolute Nucleated RBC 0.00 0.00 Immature Gran % 1 H 0 Nucleated RBC % 0 0 PT 10.9 INR 1.0 APTT 20.0 L Sodium 139 139 Potassium 3.8 4.0 Chloride 104 106 Carbon Dioxide 26.9 25.9 Anion Gap 8 7 BUN 13 10 Creatinine 1.0 0.8 Estim Creat Clear Calc 66.8 83.7 eGFR > 60 > 60 BUN/Creatinine Ratio 13 13 Glucose [address] Glu mg/dL 114 Hemoglobin A1c 5.6 Calculated Osmolality 279 277 Calcium 8.9 8.6 Corrected Calcium 8.9 8.6 Magnesium 1.9 2.0 Total Bilirubin 0.2 L 0.4 AST 19 14 ALT 24 15 Alkaline Phosphatase 61 57 Lactate Dehydrogenase 209 Troponin I < 0.002 B-Natriuretic Peptide < 20 Total Protein 6.6 6.0 Albumin 4.4 4.0 Globulin 2.2 L 2.0 L Albumin/Globulin Ratio 2.0 2.0 Triglycerides 48 Cholesterol 157 LDL Cholesterol, Calc 97 HDL Cholesterol 50 Cholesterol/HDL Ratio 3.1 L TSH 3.25 Ur Collection Type Clean Catch Urine Color Lt-Yellow Urine Clarity Clear Urine pH 7.5 H Ur Specific [place] 1.015 Urine Protein Trace Urine Glucose (UA) Negative Urine Ketones Trace Urine Blood Negative Urine Nitrite Negative Urine Bilirubin Negative Urine Urobilinogen (Auto) Negative Ur Leukocyte Esterase Negative Urine RBC 0 Urine WBC 0 Ur Squamous Epith Cells 0 Urine Bacteria None Urine Opiates Screen Negative Urine Fentanyl Screen Negative Ur Barbiturates Screen Negative U Amphetamin/Meth Scrn Negative U Benzodiazepines Scrn Negative U Cocaine Metab Screen Negative U Marijuana (THC) Screen Negative Quality Measures Quality Measures VTE prophylaxis Assessment & Plan Assessment Current Active Medications: Generic Name Dose Route Start Last Admin Trade Name Freq PRN Reason Stop Dose Admin Acetaminophen 650 mg 05/07/24 00:56 Acetaminophen 325 Mg Tablet PO 06/06/24 00:55 Q6H PRN Fever >101.5 or pain 1-3 Aspirin 81 mg 05/07/24 09:00 05/07/24 08:23 Aspirin Ec 81 Mg Tabec PO 06/06/24 08:59 81 mg QDAY MELODY Administration Atorvastatin Calcium 40 mg 05/07/24 21:00 Atorvastatin Calcium 20 Mg Tablet PO 06/06/24 20:59 HS MELODY Enoxaparin Sodium 40 mg 05/07/24 09:00 05/07/24 08:23 Enoxaparin Sod Inj 40 Mg/0.4 Ml Syringe SC 05/21/24 08:59 40 mg QDAY MELODY Administration Ondansetron HCl 4 mg 05/07/24 00:56 Ondansetron Inj 2 Mg/Ml Inj 2 Ml IV 06/06/24 00:55 Q6H PRN NAUSEA OR VOMITING Protocol Tramadol HCl 50 mg 05/07/24 00:56 05/07/24 14:26 Tramadol Hcl 50 Mg Tablet PO 05/12/24 00:55 50 mg Q6HR PRN Administration PAIN SCALE 4-6 (Moderate Plan 63-year-old male with past medical history of gout and active smoker was admitted to the hospital on 04/06/2024 due to strokelike symptoms. #TIA #Vertigo #Nausea and vomiting #Headaches ?Patient initially came in with complaints of vertigo nausea, vomiting, and headaches that started at 2 PM on the day prior to admission. ?Head CT that show age-indeterminate infarcts of the right frontal parietal lobe ? Head/neck CTA did not show any significant neck arterial stenosis or large vessel occlusion ? Brain MRI did not show any acute infarct and only showed white matter changes. ?NIHSS score 1 ?Teleneuro consulted and advised Aspirin 81 mg Plan: -Continue atorvastatin and aspirin 81mg ?Patient was out of window for IV thrombolytics. ?Neurochecks every 4 hours ?Head of bed elevation to 30 degrees ?Aspiration precautions -Consult in-hospital neurology, appreciate recommendations -Referred to speech and physical therapy # Normochromic anemia ?Hemoglobin on admission was 13.1 and today is 12.3 ? There are no active signs of bleeding Plan: ?Will transfuse when hemoglobin less than 7 ? Will continue to monitor #Leukocytosis ?Likely hemoconcentration in the setting of dehydration due to nausea and vomiting ? Initial WBC was 14.3 and today is 9.2 Plan: Will continue to monitor #History of gout ?Patient takes tramadol at home, pending med reconciliation. Disposition: Patient admitted to telemetry for stroke rule out. Diet: Regular GI prophylaxis: not indicated DVT prophylaxis: lovenox Code: Full Case disclosed with Attending Dr. Rocio Barron PGY1 Attending Provider Attestation/Addendum I have discussed and was present for the essential components of the history, physical examination, diagnosis, and treatment plan with the resident. I agree with the patient's care as documented by the resident and amended herein by me. Saroj Chan, . Patient seen and evaluated this AM. In Short, patient is a 63-year-old male with significant past medical history of gout and tobacco use, admitted subsequently admitted on 05/07 for CVA rule out. No acute events overnight, vital signs stable, patient afebrile, patient is exhibiting anxiety as he really dislikes hospitals. Initial CT head negative for any acute intracranial pathology, CTA head and neck also unremarkable. MRI brain negative for any acute hemorrhage/infarct however did demonstrate multiple punctate foci in the white matter. The patient still has some weakness however improved Will continue aspirin for TIA, will also need to consult in-house neurology, Dr Jordan tomorrow when she is back from vacation. Echo also pending as well as speech eval. Will also start the patient on Xanax for now for anxiety. Medications: Aspirin 81 mg daily, atorvastatin 40 mg at bedtime, Lovenox 40 mg daily Although this document has been carefully reviewed, there may still be some phonetic and other typographical errors. These errors are purely grammatical due to imperfections in the software program and should not be construed in any way to compromise the substance of the patient's medical care during this visit.
[2024-05-07] MEDS: ATORVASTATIN CALCIUM 20 MG TABLET 40 MG PO (20:04)
[2024-05-08] VITALS (7 sets, daily range): BP systolic 135–176; BP diastolic 82–103; PULSE 62–101; RESP 20–22; TEMP 36.1–36.6; O2SAT 97–99; BMI 29.8
[2024-05-08] MEDS: MELATONIN 3 MG TABLET PO (00:20)
[2024-05-08] MEDS: ACETAMINOPHEN 325 MG TABLET 650 MG PO (00:20)
[2024-05-08] MEDS: traMADol HCL 50 MG TABLET PO ×2 (02:57→14:17)
[2024-05-08 05:54] LABS: Basophils % (Auto) 1 % (0-2.5); Eosinophils # (Auto) 0.1 Thou/mm3 (0.0-0.5); Eosinophils % (Auto) 2 % (0-10); Hematocrit 36.2 % (41.0-53.0); Hemoglobin 12.2 g/dL (13.5-16.0); Immature Granulocytes % (Auto) 0 % (0-0); Immature Granulocytes Auto 0.02 Thou/mm3 (0.00-0.00); Lymphocytes # (Auto) 2.2 Thou/mm3 (1.0-4.8); Lymphocytes % (Auto) 36 % (10-50); Mean Corpuscular HGB Conc 33.7 g/dl (31.0-37.0); Mean Corpuscular Volume 86 fL (80-100); Monocytes # (Auto) 0.6 Thou/mm3 (0.0-0.8); Monocytes % (Auto) 9 % (0-12); Neutrophils # (Auto) 3.3 Thou/mm3 (1.8-7.7); Neutrophils % (Auto) 52 % (37-80); Nucleated Red Blood Cell % 0 /100 WBC (0); Platelet Count 207 Thou/mm3 (140-440); RDW Standard Deviation 38.8 fL (35.1-43.9); Red Blood Count 4.21 Miln/mm3 (4.50-5.90); White Blood Count 6.3 Thou/mm3 (3.8-10.6)
[2024-05-08 06:04] LABS: Partial Thromboplastin Time 24.9 Seconds (22.0-36.0); Prothrombin Time 11.4 Seconds (9.0-12.2)
[2024-05-08 06:20] LABS: Alanine Aminotransferase 26 U/L (10-49); Albumin, Serum 4.4 gm/dL (3.4-4.8); Alkaline Phosphatase 60 U/L (46-116); Anion Gap 8 (7-16); Aspartate Amino Transferase 34 U/L (0-34); BUN/Creatinine Ratio 13 Ratio (12-20); Bilirubin,Total 0.5 mg/dL (0.3-1.2); Blood Urea Nitrogen 10 mg/dL (9-23); Calcium 9.4 mg/dL (8.3-10.6); Calcium (Corrected) 9.4 mg/dL (8.5-10.1); Carbon Dioxide 26.6 mMol/L (20.0-31.0); Chloride 105 mMol/L (98-107); Creatinine (Component) 0.8 mg/dL (0.6-1.3); Estimated Creatinine Clearance 85.5 mL/min (>60); Globulin 2.2 gm/dL (2.3-3.5); Glucose 97 mg/dL (74-106); Magnesium 2.1 mg/dL (1.6-2.6); Osmolality,Calculated 278 (275-295); Potassium 3.7 mMol/L (3.4-5.1); Sodium 140 mMol/L (136-145); Total Protein 6.6 gm/dL (5.7-8.2); eGFR > 60 See Note
[2024-05-08] MEDS: POTASSIUM CHLORIDE 20 mEq TABCR PO (08:03)
[2024-05-08] MEDS: ASPIRIN EC 81 MG TABEC PO (08:03)
[2024-05-08] MEDS: QUEtiapine FUMARATE 25 MG TABLET PO (08:03)
[2024-05-08] MEDS: ENOXAPARIN SOD INJ 40 MG/0.4 ML SYRINGE SC (08:04)
[2024-05-08] MEDS: NICOTINE PATCH 14 MG/24 HR PATCH.TD24 TOP (09:49)
--- NOTE | 2024-05-08 13:16 | VVPN_ITS ---
Telemedicine visit statement This visit was conducted with the use of interactive audio and video telecommunications system that permits real time communication between the patient and the provider. Patient's verbal consent for virtual visit was obtained on 05/08/24 at 1316. Documentation for date of: 05/08/24 Subjective Subjective Interval history: Patient is in telemetry today with his daughter at bedside. Denies any new symptoms or similar symptoms after admission. Virtual exam Vital Signs Temp Pulse Resp BP Pulse Ox O2 Del Method 97.9 F 98 22 H 158/98 H 99 Room Air 05/08/24 12:00 05/08/24 12:00 05/08/24 12:00 05/08/24 12:00 05/08/24 12:00 05/08/24 12:00 Objective Labs 05/08/24 04:38 05/08/24 04:38 Labs: Laboratory Results - last 24 hr 05/08/24 04:38 WBC 6.3 RBC 4.21 L Hgb 12.2 L Hct 36.2 L MCV 86 MCH 29.0 MCHC 33.7 RDW Std Deviation 38.8 Plt Count 207 Neut % (Auto) 52 Lymph % (Auto) 36 [place] % (Auto) 9 Eos % (Auto) 2 Baso % (Auto) 1 Neut # (Auto) 3.3 Lymph # (Auto) 2.2 [place] # (Auto) 0.6 Eos # (Auto) 0.1 Baso # (Auto) 0.0 Immature Gran # (Auto) 0.02 H Absolute Nucleated RBC 0.00 Immature Gran % 0 Nucleated RBC % 0 PT 11.4 INR 1.0 APTT 24.9 Sodium 140 Potassium 3.7 Chloride 105 Carbon Dioxide 26.6 Anion Gap 8 BUN 10 Creatinine 0.8 Estim Creat Clear Calc 85.5 eGFR > 60 BUN/Creatinine Ratio 13 Glucose 97 Calculated Osmolality 278 Calcium 9.4 Corrected Calcium 9.4 Phosphorus 4.0 Magnesium 2.1 Total Bilirubin 0.5 AST 34 ALT 26 Alkaline Phosphatase 60 Total Protein 6.6 Albumin 4.4 Globulin 2.2 L Albumin/Globulin Ratio 2.0 Assessment & Plan Problem List (1) Paresthesia: Status: Resolved Assessment and plan: Reassurance given to the patient regarding the negative MRI brain for acute stroke. Patient most likely has had a complicated migraine or TIA. Continue with aspirin and statin. Will need echocardiogram as an outpatient. Patient is stable for discharge and I will see him back in 2 to 3 weeks upon referral from his primary. (2) Hypertension: Status: Acute Assessment and plan: Under control on lisinopril.
--- NOTE | 2024-05-08 13:55 | ESPR_ITS ---
Documentation for date of: 05/08/24 Subjective Subjective Interval history: No acute overnight events. Appears a little agitated this morning, was pacing around the room, likely withdrawing from NICOTINE. No reported worsening of neurological symptoms. Headaches have improved. Denies fever, chills, headaches, chest pain, sob, cough, GI or urinary symptoms. Exam Vital Signs Temp Pulse Resp BP Pulse Ox O2 Del Method 97.9 F 98 22 H 158/98 H 99 Room Air 05/08/24 12:00 05/08/24 12:00 05/08/24 12:00 05/08/24 12:00 05/08/24 12:00 05/08/24 12:00 Narrative Exam General: A/O x3, anxious, no acute distress Eyes: PERRL, EOMI. Anicteric, vision grossly intact. Ears: No ear pain, no ear discharge, Hearing grossly intact. Nose: No nasal discharge. Mouth/Throat: Dry mucous membranes, no redness, no lesions. Neck: Neck supple, non-tender, no cervical lymphadenopathy. Lungs: Clear AMANDO to auscultation and percussion, No accessory muscle use. Cardio: Normal S1/S2, regular rhythm, no murmurs, no JVD Abdomen: Soft, non-tender, no palpable masses, peristalsis present, no guarding or rebound. Extremities: Symmetrical, no significant deformities, no peripheral edema , non-tender, peripheral pulses presents. Skin: No rashes, no lesions, warm to touch. Neuro: Normal sensation in R UE when compared to L UE, strength 5/5 AMNADO UE and LE. No slurred speech appreciated. Psych: anxious Objective Labs 05/08/24 04:38 05/08/24 04:38 Labs: Laboratory Results - last 24 hr 05/08/24 04:38 WBC 6.3 RBC 4.21 L Hgb 12.2 L Hct 36.2 L MCV 86 MCH 29.0 MCHC 33.7 RDW Std Deviation 38.8 Plt Count 207 Neut % (Auto) 52 Lymph % (Auto) 36 [place] % (Auto) 9 Eos % (Auto) 2 Baso % (Auto) 1 Neut # (Auto) 3.3 Lymph # (Auto) 2.2 [place] # (Auto) 0.6 Eos # (Auto) 0.1 Baso # (Auto) 0.0 Immature Gran # (Auto) 0.02 H Absolute Nucleated RBC 0.00 Immature Gran % 0 Nucleated RBC % 0 PT 11.4 INR 1.0 APTT 24.9 Sodium 140 Potassium 3.7 Chloride 105 Carbon Dioxide 26.6 Anion Gap 8 BUN 10 Creatinine 0.8 Estim Creat Clear Calc 85.5 eGFR > 60 BUN/Creatinine Ratio 13 Glucose 97 Calculated Osmolality 278 Calcium 9.4 Corrected Calcium 9.4 Phosphorus 4.0 Magnesium 2.1 Total Bilirubin 0.5 AST 34 ALT 26 Alkaline Phosphatase 60 Total Protein 6.6 Albumin 4.4 Globulin 2.2 L Albumin/Globulin Ratio 2.0 Quality Measures Quality Measures none Assessment & Plan Assessment Current Active Medications: Generic Name Dose Route Start Last Admin Trade Name Freq PRN Reason Stop Dose Admin Acetaminophen 650 mg 05/07/24 00:56 05/08/24 00:20 Acetaminophen 325 Mg Tablet PO 06/06/24 00:55 650 mg Q6H PRN Administration Fever >101.5 or pain 1-3 Aspirin 81 mg 05/07/24 09:00 05/08/24 08:03 Aspirin Ec 81 Mg Tabec PO 06/06/24 08:59 81 mg QDAY MELODY Administration Atorvastatin Calcium 40 mg 05/07/24 21:00 05/07/24 20:04 Atorvastatin Calcium 20 Mg Tablet PO 06/06/24 20:59 40 mg HS MELODY Administration Enoxaparin Sodium 40 mg 05/07/24 09:00 05/08/24 08:04 Enoxaparin Sod Inj 40 Mg/0.4 Ml Syringe SC 05/21/24 08:59 40 mg QDAY MELODY Administration Nicotine 14 mg 05/08/24 09:45 05/08/24 09:49 Nicotine Patch 14 Mg/24 Hr Patch.Td24 TOP 06/07/24 09:44 14 mg QDAY MELODY Administration Ondansetron HCl 4 mg 05/07/24 00:56 Ondansetron Inj 2 Mg/Ml Inj 2 Ml IV 06/06/24 00:55 Q6H PRN NAUSEA OR VOMITING Protocol Tramadol HCl 50 mg 05/07/24 00:56 05/08/24 02:57 Tramadol Hcl 50 Mg Tablet PO 05/12/24 00:55 50 mg Q6HR PRN Administration PAIN SCALE 4-6 (Moderate Plan 63-year-old male with past medical history of gout and active smoker was admitted to the hospital on 04/06/2024 due to strokelike symptoms. Workup pointing towards TIA versus complex migraine, with negative radiographical for stroke. Symptoms have resolved otherwise. By physical therapy, independent. Pending, in house neurology recommendations. Will likely discharge if cleared by neuro. #TIA versus complex migraine #Vertigo #Nausea and vomiting #Headaches ?Patient initially came in with complaints of vertigo nausea, vomiting, and headaches that started at 2 PM on the day prior to admission. ?Head CT that show age-indeterminate infarcts of the right frontal parietal lobe ? Head/neck CTA did not show any significant neck arterial stenosis or large vessel occlusion ? Brain MRI did not show any acute infarct and only showed white matter changes. ?NIHSS score 1 ?Teleneuro consulted and advised Aspirin 81 mg ? Cleared by speech and physical therapy Plan: -Continue atorvastatin and aspirin 81mg ?Patient was out of window for IV thrombolytics. ?Neurochecks every 4 hours ?Head of bed elevation to 30 degrees ?Aspiration precautions ? Pending in-house neurology recommendations Hypertension (NEW) No history of hypertension. SBP around 160s during his stay. Previously allowed for permissive hypertension. Possibly due to NICOTINE withdrawal versus agitation. Will start patient on antihypertensives as below. ? Started LISINOPRIL 10 mg daily ? Will need to follow-up with PCP for blood pressure management NICOTINE dependency Agitation 2/2 NICOTINE withdrawal Found pacing around the room this morning, reports feeling agitated. Feels anxious, wanted to go home, states he does not like hospitals. Improved with current management. ? Given SEROQUEL x 1 ? NICOTINE patch daily # Normochromic anemia (stable) Likely chronic. Admission Hgb 13.1, currently stable around 12. No signs or symptoms of active bleed. Plan: ? Will transfuse when hemoglobin less than 7 ? Will continue to monitor ? Recommended outpatient workup for anemia #Leukocytosis ? resolved ?Likely hemoconcentration in the setting of dehydration due to nausea and vomiting ? Initial WBC was 14.3 and today is 9.2 Plan: Will continue to monitor #History of gout ?Patient takes tramadol at home, pending med reconciliation. No signs of gout flares. Disposition: Patient admitted to telemetry for stroke rule out. Diet: Regular GI prophylaxis: not indicated DVT prophylaxis: lovenox Code: Full Case disclosed with Attending Dr. Rocio Barron PGY1 Attending Provider Attestation/Addendum I have examined the patient, reviewed labs and imaging findings, discussed the case with the resident(s), and reviewed entered orders. I agree with the plan of care as outlined in this note. Dr. Carrillo
--- NOTE | 2024-05-08 15:05 | PD.RESDS ---
Planned Discharge Date 05/08/24 DS: Providers Provider Date of admission: 05/07/24 00:56 Primary care physician: Hermelindo Paul MD Admitting Provider: Kenyon Wynne MD Attending Provider on Admission: Kenyon Wynne MD Consults: 05/07/24 01:01 Referral Physical Therapy Routine Comment: Physician Instructions: 05/07/24 01:02 Consult to Neurology / Tele-Neurology Stat Comment: Consulting Provider: Srikanth Jordan 05/07/24 15:16 Referral Speech Therapy Routine Comment: Attending Provider on DC: Dr. Kehinde Carrillo MD Discharging Provider: Dr. Kehinde Carrillo MD DS: Diagnosis Problem List Completed Was Problem List Reviewed/Reconciled?: Yes Hospital Course Hospital Course Hospital course: This is a 63-year-old male with PMHx of chronic tobacco use and gout, presenting with strokelike symptoms with decreased sensation of right upper extremity, vertigo, nausea and vomiting. Admitted for TIA versus complex migraine. CT head, CTA head/neck, MRI were negative for acute pathology or vascular disease. MRI however showed possible demyelination disease, but unconfirmed. Followed by neurology during the stay who recommended ASPIRIN and ATORVASTATIN. At the time of discharge, patient was stable, appears at baseline, symptoms have all resolved. Cleared by physical therapy and speech. He will discharge to home and will follow-up with neurology outpatient. Additionally, patient consistently hypertensive with SBP in 160s. We started LISINOPRIL and advised daily blood pressure monitoring, and following up with PCP. PATIENT INSTRUCTIONS: Follow-up with PCP within 1-2 weeks of discharge. Discussed smoking cessation, hypertension, and anemia with your primary care provider. Follow-up with neurology within 1-2 weeks of discharge. Return to Emergency Room if symptoms persist, worsen, or new symptoms develop. Continue taking medications as prescribed below. ? ASPIRIN 81 mg daily (NEW) ? ATORVASTATIN 40 mg daily (NEW) ? LISINOPRIL 10 mg daily (NEW) ? CETIRIZINE 10 mg daily ADMISSION DIAGNOSES: TIA versus complex migraine (improved) Vertigo (resolved) Nausea and vomiting (resolved) Headaches (resolved) Hypertension (NEW) NICOTINE dependency Agitation 2/2 NICOTINE withdrawal Normochromic anemia (stable) Leukocytosis (resolved) Patient case was discussed with attending, Dr. Carrillo and senior resident Dr. Guerra. Nisa Núñez DO PGYI Time Spent with Patient Time attestation: Total time spent providing and/or coordinating discharge services: Greater than 35 minutes. Exam Vital Signs Temp Pulse Resp BP Pulse Ox O2 Del Method 97.9 F 98 22 H 158/98 H 99 Room Air 05/08/24 12:00 05/08/24 12:00 05/08/24 12:00 05/08/24 12:00 05/08/24 12:00 05/08/24 12:00 Narrative Exam General: A/O x3, anxious, no acute distress Eyes: PERRL, EOMI. Anicteric, vision grossly intact. Ears: No ear pain, no ear discharge, Hearing grossly intact. Nose: No nasal discharge. Mouth/Throat: Dry mucous membranes, no redness, no lesions. Neck: Neck supple, non-tender, no cervical lymphadenopathy. Lungs: Clear AMANDO to auscultation and percussion, No accessory muscle use. Cardio: Normal S1/S2, regular rhythm, no murmurs, no JVD Abdomen: Soft, non-tender, no palpable masses, peristalsis present, no guarding or rebound. Extremities: Symmetrical, no significant deformities, no peripheral edema , non-tender, peripheral pulses presents. Skin: No rashes, no lesions, warm to touch. Neuro: Normal sensation in R UE when compared to L UE, strength 5/5 AMANDO UE and LE. No slurred speech appreciated. Psych: anxious Discharge Plan Plan Patient Disposition: HOME (Self Care) Prescriptions/Referrals Prescriptions/Med Rec: New atorvastatin 40 mg tablet 40 mg PO QDAY 30 Days Qty: 30 1RF aspirin 81 mg Tablet,Delayed Release (Dr/Ec) 81 mg PO QDAY Qty: 30 1RF lisinopril 10 mg tablet 10 mg PO QDAY Qty: 30 1RF No Action cetirizine 10 mg tablet 10 mg PO QDAY Qty: 14 0RF Referrals: Hermelindo Paul([facility])MD [Primary Care Provider] - Patient/Caregiver Discharge Instructions Other Discharge Activity Instructions:: Follow-up with PCP within 1-2 weeks of discharge. Discussed smoking cessation, hypertension, and anemia with your primary care provider. Follow-up with neurology within 1-2 weeks of discharge. Return to Emergency Room if symptoms persist, worsen, or new symptoms develop. Continue taking medications as prescribed below. ? ASPIRIN 81 mg daily (NEW) ? ATORVASTATIN 40 mg daily (NEW) ? LISINOPRIL 10 mg daily (NEW) ? CETIRIZINE 10 mg daily Print Language: Brazilian Stand Alone Forms: Jie Award Info., Patient Portal Info Letter Quality Discharge Quality Measures VTE prophylaxis MD Attestestation MD Attestation I have examined the patient, reviewed labs and imaging findings, discussed the case with the resident(s), and reviewed entered orders. I agree with the plan of care as outlined in this note. Dr. Carrillo
--- NOTE | 2024-05-08 15:21 | PC.CC ---
Rounding note: late D/c pending PT eval.
[2024-05-08] MEDS: Lisinopril 2.5 MG TABLET 10 MG PO (15:48)
== END 2024-05-08 17:30 | disposition home or self-care (01) | DRG 47 ==
LOC: SERX 05-07 00:12 → SERHOLD 05-07 01:19 → S2NX 05-07 14:59
PROVIDERS: Registered Nurse General Practice; Admitting Provider Student in an Organized Health Care Education/Training Program; Emergency Provider Emergency Medicine; PCP Family Medicine; Visit Provider Student in an Organized Health Care Education/Training Program
DX: G45.9 Transient cerebral ischemic attack, unspecified (principal); I10 Essential (primary) hypertension; G43.109 Migraine with aura, not intractable, without status migrainosus; M10.9 Gout, unspecified; Z71.6 Tobacco abuse counseling; F41.9 Anxiety disorder, unspecified; D64.9 Anemia, unspecified; D72.829 Elevated white blood cell count, unspecified; F17.203 Nicotine dependence unspecified, with withdrawal; E86.0 Dehydration
CPT/HCPCS: 36415; 70450; 70496; 70498; 70544; 80053; 80061; 80307; 81001; 83036; 83615; 83735; 83880; 84100; 84443; 84484; 85025; 85610; 85730; 87811; 92610; 93005; 96361; 96372; 96374; 96375; 97162; 99285; A4649; J1650; J2405; J2765; J7030; Q9967; A9270